=== PATIENT | female | born 1965 | race Caucasian/White ===

== ENCOUNTER → 2018-06-06 | Outpatient (CLI) | payer BC ==
--- NOTE | 2018-06-06 15:53 | RAD ---
Right lower extremity venous duplex study 06/06/2018 3:50 PM Clinical History: Pain, posterior to the right knee. Technique: Using a combination of real time ultrasound imaging and color-flow and pulse Doppler imaging techniques, including spectral analysis, graded compression and augmentation, duplex evaluation of the deep venous system of the right lower extremity was performed. Multiple images were obtained. Findings: There is no sonographic evidence of deep venous thrombosis involving the visualized deep venous structures of the right lower extremity. No other focal sonographic abnormalities are identified. A Jasso's cyst is not seen. . Impression: No evidence of deep venous thrombosis involving the right lower extremity Electronically signed by: Enoc Sutton MD (06/06/2018 3:50 PM) [id number]
== END | disposition home or self-care (01) ==
LOC: US 14:53
PROVIDERS: ATTEND Physician Assistant Medical
DX: M71.21 Synovial cyst of popliteal space [Baker], right knee (principal); M25.561 Pain in right knee
CPT/HCPCS: 93971

== ENCOUNTER → 2018-11-07 | Outpatient (CLI) | payer BC ==
--- NOTE | 2018-11-07 08:45 | RAD ---
Chest, 2 views, 11/07/2018: HISTORY: Chest discomfort The heart size and pulmonary vascularity are normal. No pulmonary infiltrate is seen. There is no evidence of pleural fluid. IMPRESSION: No acute cardiopulmonary abnormality is detected. Electronically signed by: Usman Barajas MD (11/07/2018 8:42 AM) [facility]
== END | disposition home or self-care (01) ==
LOC: RAD 07:54
PROVIDERS: ATTEND Physician Assistant Medical
DX: R07.89 Other chest pain (principal)
CPT/HCPCS: 71046

== ENCOUNTER → 2019-10-29 | Outpatient (CLI) | payer OTHER ==
--- NOTE | 2019-10-29 12:08 | RAD ---
PA and lateral chest x-ray compared to similar exam dated 11/07/2018 for no indication. FINDINGS: The lungs are clear. Cardiomediastinum is grossly unremarkable. No soft tissue or osseous abnormalities are seen. IMPRESSION: 1. No acute cardiopulmonary abnormality. Electronically signed by: Eliud Estes MD (10/29/2019 12:05 PM) [id number]
== END | disposition home or self-care (01) ==
LOC: DXRAD 11:10
PROVIDERS: ATTEND Family Medicine
DX: M62.838 Other muscle spasm (principal)
CPT/HCPCS: 71046